=== PATIENT | female | born 1965 | race Caucasian/White ===

== ENCOUNTER 2020-07-09 06:52 | Outpatient (CLI) | payer BC, SELFPAY ==
--- NOTE | ~2020-07-09 | MR_ITS ---
EXAMINATION: MR brain IAC wo con EXAM DATE: 07/09/2020 07:40 INDICATION: Headache YANCEY [id number]. TECHNIQUE: Magnetic resonance imaging (MRI) of the brain/brain stem obtained without contrast. Sagitt al T1, axial diffusion, gradient echo (T2*), T1, T2, FLAIR sequences obtained. There is no prior st udy for comparison. FINDINGS: There are no areas of restricted diffusion to suggest acute infarction. Several punctate wh ite matter T2 hyperintensities, nonspecific but likely minimal age-related microangiopathy. There is no acute hemorrhage seen on the T2*, a hemosiderin sensitive sequence. No intraparenchymal brain mas s. The ventricles are normal in size. There are no extra-axial collections. Flow voids are seen in the cerebral arteries on the T2-weighted sequences consistent with their expected patency. The orbit s are unremarkable. Soft tissue is unremarkable. Posterior fossa is unremarkable. There are 3 smal l left maxillary sinus retention cysts or polyps, and one in the right maxillary sinus. IMPRESSION: 1. Several punctate white matter T2 hyperintensities, nonspecific but likely minimal microangiopathy. 2. Maxillary sinus retention cysts or polyps. Reviewed, dictated and finalized at location B. IDENTIAL SECRETARY IMPRESSION: 1. Several punctate white matter T2 hyperintensities, nonspecific but likely mi nimal microangiopathy. 2. Maxillary sinus retention cysts or polyps.
== END 2020-07-09 06:53 ==
LOC: CHSIMG 06:55
PROVIDERS: PCP Internal Medicine; Visit Provider Internal Medicine
DX: R50.9 Fever, unspecified (principal)
CPT/HCPCS: 70551

== ENCOUNTER → 2020-12-02 10:32 | Outpatient (CLI) | payer BC, SELFPAY ==
--- NOTE | ~2020-12-02 | CT_ITS ---
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 2 weeks of right flank pain. TECHNIQUE: Computed tomography (CT) of the abdomen and pelvis was performed without intravenous contr ast. CT of the abdomen and pelvis was then performed with a total of 130 mL Omnipaque-350 intravenous contrast using a double-bolus technique for simultaneous opacification of the renal parenchyma and r enal collecting system. Automated exposure control and iterative reconstruction technique were employ ed. The dose-length product was 1414.82 mGy-cm. COMPARISON: None FINDINGS: Mild discoid atelectasis at the lingula. Heart size is normal. No pericardial or pleural effusion. He terogeneous pattern of diffuse hepatic steatosis. Gallbladder, spleen, pancreas and bilateral adrenal glands are normal. 3.3 cm right renal cyst with thin indiscernible internal septation. 2-3 mm parenc hymal calcification at the upper pole of the right kidney at the site of focal cortical scarring. No other urolithiasis or hydronephrosis. There are bilateral dedicated renal collecting systems with sep arate ureters extending from the kidneys to the bladder. The proximal to mid aspect of the left-sided ureters and the midportion of both the right ureters remain unopacified. No urothelial irregularitie s identified along the contrast opacified portions of the renal collecting systems and ureters. T-sha ped IUD in expected position within the endometrial canal of the anteverted uterus. 3 cm enhancing fi broid at the anterior uterine fundus. Bilateral adnexa are unremarkable. Bowels including the appendi x are normal. No free intraperitoneal gas or fluid. No pathologically enlarged abdominal or pelvic ly mphadenopathy. Small fat-containing umbilical hernia. Mild lumbar spondylosis. IMPRESSION: 1. No interval change in a 3.3 cm Bosniak 2 right renal cyst. 2. 2-3 mm nonobstructing stone/parenchymal calcification at the upper pole of the right kidney. 3. Complete bilateral duplicated renal collecting systems with pair of left-sided and pair of right-s ided ureters, all extending to the bladder. 4. IUD in expected position within the uterus with 3 cm anterior uterine fibroid. 5. Small fat-containing umbilical hernia. Reviewed, dictated and finalized at location A. IMPRESSION: 1. No interval change in a 3.3 cm Bosniak 2 right renal cyst. 2. 2-3 mm nonobstructing stone/parenchymal calcification at the upper pole of t he right kidney. 3. Complete bilateral duplicated renal collecting systems with pair of left-em ed and pair of right-sided ureters, all extending to the bladder. 4. IUD in expected position within the uterus with 3 cm anterior uterine fibroi d. 5. Small fat-containing umbilical hernia.
[2020-12-02 10:59] LABS: Estimated Glomerular Filt Rate > 60
== END ==
PROVIDERS: PCP Internal Medicine; Visit Provider Urology
DX: D41.01 Neoplasm of uncertain behavior of right kidney (principal); Z97.5 Presence of (intrauterine) contraceptive device; K44.9 Diaphragmatic hernia without obstruction or gangrene; N20.0 Calculus of kidney
CPT/HCPCS: 74178; Q9967

== ENCOUNTER 2021-07-03 01:23 | Day surgery (SDC) | payer BC, SELFPAY ==
[2021-06-30 10:48] VITALS: BMI 30.7
--- NOTE | 2021-07-01 13:15 | PM.HPGS ---
History of Present Illness History of Present Illness Consent: Risks, benefits, and alternatives have been discussed and questions answered. Patient agrees to proceed with procedure. Chief complaint: GERD, epigastric pain Narrative: Madison Mccormick I is a 55 year old female with referred because of persistent epigastric pain. This often occurs after eating something greasy or spicy. the discomfort will last for about an hour Review of Systems Review of Systems: All systems reviewed & are unremarkable except as noted in HPI and below PMFSH Past Medical History Medical History (Updated 07/03/21 @ 08:27 by Delroy Reyes MD) Fibromyalgia GERD (gastroesophageal reflux disease) HTN (hypertension) Obesity Surgical History Surgical History H/O colonoscopy Family History Family History Other Diabetes mellitus Family history of cardiovascular disease Social History Social History Smoking status: Never smoker Alcohol intake: current Drinks per week: 2 Alcohol use details: occasional wine on weekend Substance use: never Substance use type: does not use Living arrangements: with family Spiritual care concerns: No Meds Home Medications and Allergies Home Medications Medication Instructions Recorded Confirmed Type aspirin 81 mg PO DAILY 06/30/21 06/30/21 History estradiol-norethindrone acet 1 tablet PO DAILY 06/30/21 06/30/21 History fluticasone propionate 1 spray INTRANASAL PRN PRN 06/30/21 06/30/21 History magnesium oxide 250 mg PO DAILY 06/30/21 06/30/21 History montelukast 10 mg PO DAILY 06/30/21 06/30/21 History nortriptyline 25 mg PO DAILY 06/30/21 06/30/21 History verapamil 120 mg PO DAILY 06/30/21 06/30/21 History Allergies Allergy/AdvReac Type Severity Reaction Status Date / Time No Known Allergies Allergy Verified 07/03/21 08:18 Exam Const: General: alert Orientation/consciousness: patient oriented x3 Resp: Auscultation: clear to auscultation bilaterally Cardio: Rhythm: regular rhythm GI: GI Palp: Yes Soft to palpation and No Tenderness to palpation present (GI) Neuro: General: patient oriented x3 Assessment and Plan Assessment and plan (1) Epigastric pain: Code(s): R10.13 - Epigastric pain Status: Acute Assessment and Plan: EGD with possible biopsy or dilatation or cautery.
[2021-07-03 08:18] VITALS: BP 134/71; PULSE 81; RESP 14; TEMP 35.6; O2SAT 98; BMI 31.1
--- NOTE | 2021-07-03 08:26 | P.PNAN_ITS ---
Anes - Initial Pre Proc Eval Procedure: Operation Date: 07/03/21 09:00 Proposed Procedures p Esophagogastroduodenoscopy - Wally Sharpe MD Date/Time: 07/03/21 08:26 Surgeon: Wally Sharpe MD Pre Op Diagnosis: GERD, epigastric pain Patient Data Age: 55 Gender: F Height: 1.6 m Weight: 79.8 kg Last Vital Signs Temp 35.6 C L 07/03/21 08:18 Pulse 81 07/03/21 08:18 Resp 14 07/03/21 08:18 BP 134/71 07/03/21 08:18 Pulse Ox 98 07/03/21 08:18 Allergies Allergy/AdvReac Type Severity Reaction Status Date / Time No Known Allergies Allergy Verified 07/03/21 08:18 Home Medications Medication Instructions Recorded Confirmed Type aspirin 81 mg PO DAILY 06/30/21 06/30/21 History estradiol-norethindrone acet 1 tablet PO DAILY 06/30/21 06/30/21 History fluticasone propionate 1 spray INTRANASAL PRN PRN 06/30/21 06/30/21 History magnesium oxide 250 mg PO DAILY 06/30/21 06/30/21 History montelukast 10 mg PO DAILY 06/30/21 06/30/21 History nortriptyline 25 mg PO DAILY 06/30/21 06/30/21 History verapamil 120 mg PO DAILY 06/30/21 06/30/21 History Patient hx anesthesia problems: none Family hx anesthesia problems: none Results Review: All pre-operative results and documents have been reviewed as part of the pre-operative evaluation. [facility] Past Medical History Medical History (Updated 07/03/21 @ 08:27 by Delroy Reyes MD) Fibromyalgia GERD (gastroesophageal reflux disease) HTN (hypertension) Obesity Surgical History Surgical History (Updated 07/03/21 @ 08:26 by Delroy Reyes MD) H/O colonoscopy Family History Family History (Updated 04/24/19 @ 09:06 by DOCTOR UNKNOWN) Other Diabetes mellitus Family history of cardiovascular disease Social History Social History Smoking status: Never smoker Alcohol intake: current Drinks per week: 2 Alcohol use details: occasional wine on weekend Substance use: never Substance use type: does not use Living arrangements: with family Spiritual care concerns: No Anes - Eval Final PreProcedure Day of Procedure 10/29/21 08:26 Patient weight: obese Heart: regular rate and rhythm Lungs: clear to auscultation Airway: Mallampati scale class II Neurological: alert and oriented Last oral intake: >/= 8 hours ASA classification: III Emergent: no Anesthetic plan: proceed Anesthesia type and monitoring: general GIVS and standard monitoring Results Review: All pre-operative results and documents have been reviewed as part of the pre-operative evaluation. Informed Consent: The patient's anesthetic plan and its attendant risks and benefits were discussed with the patient/family/POA. Questions were solicited and answers provided to the satisfaction of the patient/family/POA.
[2021-07-03] MEDS: LACTATED RINGERS 1,000 ML 150 ML IV CONT (08:37)
[2021-07-03 09:08] VITALS: BP 101/59; PULSE 70; RESP 23; O2SAT 97
[2021-07-03 09:18] VITALS: BP 105/67; PULSE 60; RESP 22; O2SAT 97
[2021-07-03 09:28] VITALS: BP 111/65; PULSE 57; RESP 22; O2SAT 100
== END 2021-07-03 09:36 | disposition home or self-care (01) ==
PROVIDERS: PCP Internal Medicine; Visit Provider Internal Medicine Gastroenterology
PROC: 0DJ08ZZ Inspection of Upper Intestinal Tract, Via Natural or Artificial Opening Endoscopic (ICD-10-PCS; CPT 43235; principal; 2021-07-03 09:00)
DX: K21.00 Gastro-esophageal reflux disease with esophagitis, without bleeding (principal); M79.7 Fibromyalgia; I10 Essential (primary) hypertension
CPT/HCPCS: 43239; 87081; 88305; J2704; J7120

== ENCOUNTER 2021-08-06 09:53 | Outpatient (CLI) | payer BC, SELFPAY ==
--- NOTE | ~2021-08-06 | US_ITS ---
EXAMINATION: US abdomen complete EXAM DATE: 08/06/2021 14:59 INDICATION: R10.13 - Epigastric pain. TECHNIQUE: Multiple grayscale and Doppler images of the complete abdomen were obtained (by a technolo gist who performed the scan) and subsequently reviewed. Comparison is made to prior examination from 10/15/2016. FINDINGS: The abdominal aorta is normal in caliber. Visualized portion IVC is patent. The pancreatic head a nd body are normal in appearance. The pancreatic tail is not visualized. There is echogenic liver parenchyma, hepatic steatosis. There are no focal liver lesions identified. There is no evidence of intrahepatic biliary duct dilation. Portal venous flow was seen in the he patopedal, normal direction and has normal Doppler waveform. Common bile duct measures 5 mm, which is normal. The gallbladder wall is normal in thickness, with ex pected amount of distention. No sonographic evidence of pericholecystic fluid. There is no cholelit hiases. Technologist performing exam reports patient did not demonstrate sonographic Gr's sign. Please note that this sign is less reliable in patients who have received pain medication. Right kidney: There is normal contour and echogenicity. It measures 11.0 x 5.2 x 5.3 centimeters. T here is a cystic lesion measuring up to 2.8 cm with one or 2 septations inside, size unchanged compar ed to 2017 consistent with benign histology. There is no hydronephrosis. Left kidney: There is normal contour and echogenicity. It measures 12.4 x 4.6 x 5.7 centimeters. T here are no focal renal lesions identified. There is no hydronephrosis. The spleen measures 10 centimeters and is morphologically normal. IMPRESSION: 1. Hepatic steatosis. 2. Right renal Bosniak 2 category cyst. Reviewed, dictated and finalized at location A. ICAL RESEARCH MONITOR
== END 2021-08-06 09:54 | disposition home or self-care (01) ==
LOC: ANHIMG 09:57
PROVIDERS: PCP Internal Medicine; Visit Provider Internal Medicine Gastroenterology
DX: R10.13 Epigastric pain (principal); K76.0 Fatty (change of) liver, not elsewhere classified; N28.1 Cyst of kidney, acquired
CPT/HCPCS: 76700

== ENCOUNTER 2021-11-03 17:05 | Emergency (ER) | payer BC, SELFPAY ==
--- NOTE | ~2021-11-03 | XR_ITS ---
XR chest 2V DATE: 11/03/2021 17:34 INDICATION: Sternal chest pain since. History of hypertension. TECHNIQUE: PA and lateral views COMPARISON: 07/15/2017 2 view chest FINDINGS: Normal heart size. No hilar or mediastinal enlargement. No pulmonary infiltrate or consol idation, pulmonary vascular congestion or pleural effusion or pneumothorax. IMPRESSION: No active cardiopulmonary disease Reviewed, dictated and finalized at location A. WORKER OR ESCORT
--- NOTE | 2021-11-03 17:06 | ECG_ITS ---
Measurements Intervals [place] Rate: 70 P: 37 CA: 147 QRS: 54 QRSD: 85 T: 53 QT: 426 QTc: 463 Interpretive Statements SINUS RHYTHM NORMAL EKG NO PREVIOUS ECG AVAILABLE FOR COMPARISON Electronically Signed On 11-04-2021 9:00:10 CLINICAL PATHOLOGIST by Gregory Marinelli M.D.
[2021-11-03 17:13] VITALS: BP 138/78; PULSE 70; RESP 12; TEMP 36.9; O2SAT 100
[2021-11-03 17:40] LABS: Basophils Percent Auto 0.2 % (0.2-1.2); Eosinophils Absolute Auto 0.1 K/mm3 (0-0.3); Eosinophils Percent Auto 0.9 % (0-4.4); Hematocrit 46.5 % (37.0-47.0); Hemoglobin 15.3 g/dL (12.0-15.0); Immature Granulocyte Absolute 0.01 K/mm3 (0.00-0.031); Immature Granulocyte Percent A 0.2 % (0-0.5); Lymphocytes Absolute Auto 1.64 K/mm3 (0.9-3.2); Lymphocytes Percent Auto 30.1 % (18.3-44.2); Mean Corpuscular HGB Conc 32.9 g/dl (32-36); Mean Corpuscular Hemoglobin 31.4 pg (26-34); Mean Corpuscular Volume 95.5 fl (80-100); Mean Platelet Volume 10.8 fl (7.4-10.4); Monocytes Absolute Auto 0.3 K/mm3 (0.1-0.6); Monocytes Percent Auto 5.7 % (2.6-8.5); Neutrophils Absolute Auto 3.4 K/mm3 (1.3-6.7); Neutrophils Percent Auto 62.9 % (45.5-73.1); Platelet Count Result 202 k/mm3 (150-375); Red Blood Count 4.87 M/mm3 (4.2-5.4); Red Cell Distribution Width 11.7 % (11.5-14.5); White Blood Count 5.5 K/mm3 (4.5-10.0)
[2021-11-03 17:52] LABS: Alanine Aminotransferase 29 U/L (4-35); Albumin Level 4.8 g/dL (3.5-5.1); Alkaline Phosphatase 79 U/L (38-126); Anion Gap 9 mmol/L (8-16); Aspartate Amino Transferase 37 U/L (14-36); Bilirubin,Total 0.6 mg/dL (0.2-1.3); Blood Urea Nitrogen 23 mg/dL (7-17); Calcium 9.1 mg/dL (8.4-10.2); Carbon Dioxide 26 mmol/L (22-30); Chloride 102 mmol/L (98-107); Estimated CRCL calculation 69 ml/min; Estimated Glomerular Filt Rate > 60; Glucose 92 mg/dL (65-110); Lipase 151 U/L (23-300); Potassium 3.8 mmol/L (3.4-5.0); Sodium 137 mmol/L (137-145)
[2021-11-03 17:54] LABS: Prothrombin Time 12.8 Seconds (11.1-14.7)
[2021-11-03 18:02] VITALS: BP 132/82; PULSE 67; RESP 18; O2SAT 100
[2021-11-03] MEDS: ASPIRIN 81 MG CHEWABLE TABLET 324 MG PO (18:03)
[2021-11-03 18:04] LABS: Troponin I < 0.012 ng/mL (0.000-0.034)
[2021-11-03 19:00] VITALS: BP 118/68; PULSE 62; RESP 16; O2SAT 99
--- NOTE | 2021-11-03 19:30 | ED.CHESTPAIN ---
HPI - Chest Pain General Chief Complaint: Chest Pain Stated Complaint: chest pain Time Seen by Provider: 11/03/21 18:58 Source: patient History of Present Illness HPI narrative: Patient presents with intermittent chest pain. Describes pain is sharp with a light pressure. Her pain has been present since 11:00 she reports deep breaths improves her pain was unable to identify any aggravating factors such as position or physical activity. Denies any recent hospitalizations prior history of blood clots significant family history of cardiac disease. Denies any recent fevers, cough, congestion. She denies any nausea vomiting or diaphoresis. Related Data Home Medications Medication Instructions Recorded Confirmed aspirin 81 mg PO DAILY 06/30/21 09/15/21 estradiol-norethindrone acet 1 tablet PO DAILY 06/30/21 09/15/21 fluticasone propionate 1 spray INTRANASAL PRN PRN 06/30/21 09/15/21 magnesium oxide 250 mg PO DAILY 06/30/21 09/15/21 montelukast 10 mg PO DAILY 06/30/21 09/15/21 nortriptyline 25 mg PO DAILY 06/30/21 09/15/21 verapamil 120 mg PO DAILY 06/30/21 09/15/21 Allergies Allergy/AdvReac Type Severity Reaction Status Date / Time No Known Allergies Allergy Verified 09/15/21 15:10 Review of Systems Review of Systems: CONSTITUTIONAL: Denies fever, chills, or sweats. EYES: Denies visual changes, redness, or discharge. ENT: Denies rhinorrhea, congestion, sore throat, or otalgia. CARDIOVASCULAR: Denies palpitations, or edema. RESPIRATORY: Denies cough or dyspnea. GASTROINTESTINAL: Denies abdominal pain, nausea, vomiting, or diarrhea. GENITOURINARY: Denies dysuria or hematuria. SKIN: Denies rash or itching. MUSCULOSKELETAL: Denies back pain, joint pain, or myalgia. NEUROLOGIC: Denies headache, numbness, dizziness, or weakness. PSYCHIATRIC: Denies anxiety or depression. [facility] Past Medical History Medical History Fibromyalgia GERD (gastroesophageal reflux disease) HTN (hypertension) Obesity Surgical History Surgical History H/O colonoscopy Family History Family History Other Diabetes mellitus Family history of cardiovascular disease Social History Social History Smoking status: Never smoker Alcohol intake: current Drinks per week: 2 Alcohol use details: occasional wine on weekend Substance use: never Substance use type: does not use Spiritual care concerns: No Exam Narrative: GENERAL: Well-appearing, well-nourished, and in no acute distress. HEAD: Normocephalic, atraumatic. EYES: PERRLA and EOMI. ENT: Nares clear, no rhinorrhea or epistaxis. Mucous membranes moist. NECK: Supple. No masses. No JVD CHEST: Clear to auscultation. No respiratory distress. No wheezes rales or rhonchi HEART: Regular rate and rhythm. No murmur heard. Normal peripheral pulses. ABDOMEN: Soft, nontender, nondistended, normal active bowel sounds. EXTREMITIES: Normal range of motion. No edema. SKIN: Warm, dry, no rash. NEURO: No focal deficits. Alert and oriented x3. PSYCH: Normal mood and affect. Course Reevaluation(s) Reevaluation #1: Patient resting comfortably results and plan reviewed with patient. Patient comfortable outpatient plan. Date: 11/03/21 Time: 20:54 Vital Signs Vital signs: Vital Signs Temperature 36.9 C 11/03/21 17:13 Pulse Rate 70 11/03/21 17:13 Respiratory Rate 12 11/03/21 17:13 Blood Pressure 138/78 11/03/21 17:13 Pulse Oximetry 100 11/03/21 17:13 Temperature 36.1 C L 11/03/21 21:25 Pulse Rate 60 11/03/21 21:25 Respiratory Rate 14 11/03/21 21:25 Blood Pressure 111/57 L 11/03/21 21:25 Pulse Oximetry 99 11/03/21 21:25 MDM - Chest Pain MDM Narrative Medical decision making narrative: H&P as above, vss, pt looks clinically well,
[2021-11-03 20:33] LABS: Troponin I < 0.012 ng/mL (0.000-0.034)
[2021-11-03 21:25] VITALS: BP 111/57; PULSE 60; RESP 14; TEMP 36.1; O2SAT 99
== END 2021-11-03 21:29 | disposition home or self-care (01) ==
PROVIDERS: Emergency Medicine; Emergency Provider Emergency Medicine; PCP Internal Medicine
DX: R07.89 Other chest pain (principal); M79.7 Fibromyalgia; K21.9 Gastro-esophageal reflux disease without esophagitis; I10 Essential (primary) hypertension; E66.9 Obesity, unspecified; Z68.31 Body mass index [BMI] 31.0-31.9, adult; Z79.82 Long term (current) use of aspirin
CPT/HCPCS: 36415; 71046; 80053; 83690; 84484; 85025; 85610; 85730; 93005; 99284; A9270

== ENCOUNTER 2021-11-10 07:40 | Outpatient (CLI) | payer BC, SELFPAY ==
--- NOTE | ~2021-11-10 | NM_ITS ---
EXAMINATION: NM hepatobiliary wo pharm DATE: 11/10/2021 12:38 INDICATION: Epigastric abdominal pain. COMPARISON: Ultrasound 08/06/2021 TECHNIQUE: 5.1 mCi Tc-99m mebrofenin (Choletec) was administered intravenously. Scintigraphic images of the abdomen were obtained for one hour. Then, the patient drank 8 oz Ensure, and imaging was cont inued for 60 minutes. FINDINGS: There is normal clearance of radiotracer from the blood pool. There is homogeneous tracer u ptake by the liver. Activity progresses to the bowel and gallbladder. Gallbladder ejection fraction (GBEF) was 7%. Note that with this technique, normal GBEF >= 33%. IMPRESSION: 1. Low gallbladder ejection fraction, consistent with gallbladder dysfunction and/or chronic cholecy stitis. Reviewed, dictated and finalized at location A. RIOR DESIGNER IMPRESSION: 1. Low gallbladder ejection fraction, consistent with gallbladder dysfunction and/or chronic cholecystitis.
== END 2021-11-10 07:41 | disposition home or self-care (01) ==
PROVIDERS: PCP Internal Medicine; Visit Provider Internal Medicine Gastroenterology
DX: R10.13 Epigastric pain (principal); K82.8 Other specified diseases of gallbladder
CPT/HCPCS: 78226; A9537

== ENCOUNTER 2021-12-24 08:01 | Outpatient (CLI) | payer BC, SELFPAY ==
[2021-12-24 08:33] LABS: Alanine Aminotransferase 25 U/L (4-35); Albumin Level 4.3 g/dL (3.5-5.1); Alkaline Phosphatase 56 U/L (38-126); Amylase 97 U/L (30-110); Aspartate Amino Transferase 31 U/L (14-36); Bilirubin,Total 0.5 mg/dL (0.2-1.3); Lipase 106 U/L (23-300)
== END 2021-12-24 08:02 | disposition home or self-care (01) ==
LOC: ANHSURGERY 08:05
PROVIDERS: PCP Internal Medicine; Visit Provider Surgery
DX: Z01.818 Encounter for other preprocedural examination (principal); K81.1 Chronic cholecystitis
CPT/HCPCS: 36415; 80076; 82150; 83690; 86850; 86900; 86901

== ENCOUNTER 2021-12-31 01:32 | Day surgery (SDC) | payer BC, SELFPAY ==
[2021-12-22 14:37] VITALS: BMI 31.6
--- NOTE | 2021-12-22 14:42 | PC.NURSE ---
Report to the Outpatient Waiting Room, entrance under the green pavilion located off [facility], at time _1000_ on date _12-31-21_. OR Time: __1200. - You and your visitor will be asked a series of questions to screen for COVID 19 for your protection. - A mask is required within the hospital. Preoperative COVID Testing Requirements: No COVID Test needed if: (proof is required; if not received patient will have Rapid Test prior to entry) - Patient has received COVID Vaccine at least 14 days prior to procedure date or - Patient has positive COVID test result within last 90 days of surgery date. COVID Test needed if above criteria is not met If not COVID vaccinated a COVID test must be conducted within 72 hours of surgery and patient is asked to isolate self from time of testing until procedure. You will go to the [facility] for your COVID testing. The [facility] Testing site is located at the corner of [address] [facility]. You will only be called if COVID results are positive and your surgeon may reschedule your elective surgery date. Patients may have clear liquids (water, carbonated beverages, clear teas, apple juice) until 3 hours prior to surgery with a maximum of 20 ounces. - No food from midnight until time of surgery - Infants may have breast milk until 4 hours before surgery, formula 6 hours prior to surgery. - Children will be allowed to drink immediately following surgery. If applicable, please bring a bottle or sippy cup to assist with drinking. Juice, water, soda, and popsicles are readily available. For infants on formula, please bring formula the day of surgery. Pacifiers are allowed. Take the following medications with a SIP of water the morning of surgery: ____None Medications to discontinue per physician Date to take last dose Please no make-up, nail syriac, hairspray, perfume, deodorant, or body powder the day of surgery. No jewelry (including any body piercings) or valuables the day of surgery, leave them at home. Please take a shower or bath the the morning of, surgery with Hebiclense an antibacterial soap. Wear comfortable, loose fitting clothing. Children are encouraged to wear pajamas. - Jewelry must be removed prior to entering the operating room. Rings and piercings that are not removed may be cut off. - The hospital will not accept responsibility for valuables. - Please leave all valuables, including medications, at home the day of surgery. If you are going home after surgery, a licensed commercial driver's license driver must drive you home. - NO public transportation without another adult. - We recommend that an adult stay with you for 24 hours following discharge. - We also recommend that you do not drive, make important decision, drink alcoholic beverages, or take any drugs that were not prescribed by your health care provider for at least 24 hours after your discharge time. For Pediatric surgeries, we recommend two adults accompany the child home (only one inside the building at this time). One visitor will be allowed to accompany the patient into the hospital. Patients visitor will be instructed to remain with patient at all times or leave the building. We will allow the visitor to come back to the postoperative area when patient is ready. Follow any additional instructions given to you from your surgeon. Telephone instructions given to Patient____and asked if any additional questions and then verbalized understanding. Patient advised to call surgeon office or pre surgery nurse liaison [phone] if any additional questions.
--- NOTE | 2021-12-30 14:34 | WPDANESEPPF ---
Anes - Initial Pre Proc Eval Procedure: Operation Date: 12/31/21 12:00 Proposed Procedures p Laparoscopic Cholecystectomy with Possible Open Cholecystectomy, Possible Intraoperative Cholangiogram - Shantanu Shin MD <Kye Boggs MD - Last Filed: 01/07/22 08:52> Date/Time: 12/30/21 14:34 <Kye Boggs MD - Last Filed: 01/07/22 08:52> Surgeon: Shantanu Shin MD <Kye Boggs MD - Last Filed: 01/07/22 08:52> Pre Op Diagnosis: chronic cholecystitis <Kye Boggs MD - Last Filed: 01/07/22 08:52> Patient Data Age: 56 Gender: F Height: 1.6 m Weight: 80.9 kg <Kye Boggs MD - Last Filed: 01/07/22 08:52> Allergies Allergy/AdvReac Type Severity Reaction Status Date / Time No Known Allergies Allergy Verified 12/22/21 14:35 <Kye Boggs MD - Last Filed: 01/07/22 08:52> Home Medications Medication Instructions Recorded Confirmed Type aspirin 81 mg PO DAILY 06/30/21 12/31/21 History estradiol-norethindrone acet 1 tablet PO DAILY 06/30/21 12/31/21 History fluticasone propionate 1 spray INTRANASAL PRN PRN 06/30/21 12/31/21 History magnesium oxide 250 mg PO DAILY 06/30/21 12/31/21 History nortriptyline 25 mg PO HS 06/30/21 12/31/21 History verapamil 120 mg PO HS 06/30/21 12/31/21 History hydrocodone-acetaminophen 1 tablet PO Q6H PRN #14 tablet 12/31/21 Rx pantoprazole 40 mg PO HS 28 Days #28 tablet 12/31/21 Rx <Kye Boggs MD - Last Filed: 01/07/22 08:52> Patient hx anesthesia problems: none <Jaquan Conklin DO - Last Filed: 12/31/21 11:40> Family hx anesthesia problems: none <Jaquan Conklin DO - Last Filed: 12/31/21 11:40> Results Review: All pre-operative results and documents have been reviewed as part of the pre-operative evaluation. <Kye Boggs MD - Last Filed: 01/07/22 08:52> [facility] Past Medical History Medical History: Medical History (Updated 12/31/21 @ 09:27 by Shantanu Shin MD) Fibromyalgia GERD (gastroesophageal reflux disease) HTN (hypertension) (Unknown) Obesity <Kye Boggs MD - Last Filed: 01/07/22 08:52> Surgical History Surgical History: Surgical History H/O colonoscopy History of section <Kye Boggs MD - Last Filed: 01/07/22 08:52> Family History Family History: Family History Father Stomach cancer Mother Diabetes mellitus COPD (chronic obstructive pulmonary disease) Other Breast cancer Family history of cardiovascular disease <Kye Boggs MD - Last Filed: 01/07/22 08:52> Social History Social History: Social History Smoking status: Never smoker Alcohol intake: current Drinks per week: 3 Alcohol use details: occasional wine on weekend Substance use: never Substance use type: does not use Living arrangements: with family 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 Spiritual care concerns: No <Kye Boggs MD - Last Filed: 01/07/22 08:52> Anes - Eval Final PreProcedure Day of Procedure 12/30/21 14:34 <Kye Boggs MD - Last Filed: 01/07/22 08:52> Patient weight: obese <Jaquan Conklin DO - Last Filed: 12/31/21 11:40> Heart: regular rate and rhythm <Jaquan Cnoklin DO - Last Filed: 12/31/21 11:40> Lungs: clear to auscultation and normal air movement <Jaquan Conklin DO - Last Filed: 12/31/21 11:40> Airway: Mallampati scale class II <Jaquan Conklin DO - Last Filed: 12/31/21 11:40> Neurological: alert and oriented <Jaquan Conklin DO - Last Filed: 12/31/21 11:40> Last oral intake: >/= 8 hours <Jaquan Conklin, DO - Last Filed: 12/31/21 11:40> ASA classification: III <Jaquan Reyes
[2021-12-31] VITALS (9 sets, daily range): BP systolic 93–130; BP diastolic 59–77; PULSE 60–78; RESP 11–20; TEMP 36.2–36.3; O2SAT 95–100
--- NOTE | 2021-12-31 09:24 | PM.HPGS ---
History of Present Illness History of Present Illness Consent: Risks, benefits, and alternatives of a laparoscopic cholecystectomy, possible open cholecystectomy, possible intraoperative cholangiogram have been discussed and questions answered. Patient agrees to proceed with procedure. Chief complaint: chronic cholecystitis Narrative: Madison Mccormick is a 56 year old female who presents at this time after an office visit at which time thorough discussion was undertaken regarding her current GI symptoms. She understands that some of her symptoms may be related to GERD but others seem to be related to biliary dyskinesia (see HIDA scan report). She reports a 6-month history of epigastric abdominal pain and sxs of GERD associated with eating fried, spicy, and tomato based foods, with symptoms occasionally waking her in the night. Thinking symptoms were from GERD, she often would take TUMS with some relief of her symptoms of GERD. She was sent by her PCP to Dr. Sharpe and underwent an EGD in 06/2021 which he notes some non-erosive reflux disease, but which otherwise was unremarkable. Dr. Sharpe ordered an abdominal ultrasound which was negative for gallstones. She was then sent for a HIDA scan which showed an EF of 7% with recreation of sxs of epigastric abdominal pain with drinking Ensure. After her EGD, Dr. Nielsen started her on a 30-day prescription of a PPI which helped with her sxs of GERD, but once she stopped the medication, her symptoms recurred. She has a twin sister who has undergone cholecystectomy for gallbladder disease. Review of Systems Constitutional: Constitutional: Reports no additional constitutional complaints, Reports fatigue and Denies malaise Eyes: Eyes: Denies change in vision and Denies loss of vision ENT: Reports Normal hearing present, Denies change in voice, Denies dizziness, Denies hoarseness and Denies sore throat Cardiovascular: Cardiovascular: Denies chest pain, Denies leg edema and Denies dyspnea Respiratory: Respiratory: Denies cough, Denies dyspnea and Denies wheezing Gastrointestinal: Gastrointestinal: Reports bloating ( Periodically after spicy foods), Denies hematochezia, Denies change in bowel habits, Reports dyspepsia and Reports heartburn ( usually controlled with liquid antacids) Comments: history of EGD by Dr. Sharpe in the past showing only mild reflux related mucosal changes. Genitourinary: Genitourinary: Denies urinary frequency and Denies urinary incontinence Comments: No previous abdominal surgeries except for c-sections. Neurologic: Reports Normal hearing present, Denies confusion, Denies dizziness, Denies loss of vision, Denies memory loss and Denies seizure-like activity Psychiatric: Psychiatric: Denies confusion, Denies depression and Denies memory loss Endocrine: Endocrine: Denies cold intolerance and Reports fatigue Hematologic/Lymphatic: Hematologic/Lymphatic: Denies easy bleeding and Denies easy bruising Allergic/Immunologic: Allergic/Immunologic: Denies wheezing PMFSH Past Medical History Medical History (Updated 12/31/21 @ 09:27 by Shantanu Shin MD) Fibromyalgia GERD (gastroesophageal reflux disease) HTN (hypertension) (Unknown) Obesity Surgical History Surgical History H/O colonoscopy History of section Family History Family History Father Stomach cancer Mother Diabetes mellitus COPD (chronic obstructive pulmonary disease) Other Breast cancer Family history of cardiovascular disease Social History Social History Smoking status: Never smoker Alcohol intake: current Drinks per week: 3 Alcohol use details: occasional wine on weekend Substance use: never Substance use type: does not use Living arrangements: with family Additional occupation/education comments
[2021-12-31] MEDS: ACETAMINOPHEN 500 MG TABLET 1000 MG PO (11:05)
[2021-12-31] MEDS: LACTATED RINGERS 1,000 ML 30 ML IV CONT ×2 (11:20→14:14)
[2021-12-31] MEDS: KETOROLAC 15 MG/ML VIAL (*BKC) IV PUSH (11:22)
--- NOTE | 2021-12-31 12:12 | WPDHPUPDATE1 ---
History and Physical Update Update Date/Time: 12/31/21 12:12 History and Physical has been reviewed, including an updated exam of the patient. There are NO changes in the patient's condition. Risks, benefits, and alternatives have been discussed and questions answered. Patient agrees to proceed with procedure.
[2021-12-31] MEDS: ceFAZolin 2 GM/D5W 50 ML 2 GM/50 ML BAG IVPB (12:37)
--- NOTE | 2021-12-31 14:13 | W.PM.PROC2 ---
Procedure Note - Detailed Date of Procedure 12/31/21 Pre-op Diagnosis 1. chronic cholecystitis 2. Biliary dyskinesia Post-op Diagnosis Same Procedure Performed Laproscopic Cholecystectomy Surgeon Shantanu Shin MD Casino Slot Supervisor Donnell MARCIAL.OR first front ventilator Anesthesia General Indications Patient had an abnormal hepatobiliary scan. Patient has been having postprandial pain and problems. Description of Procedure Patient was seen preoperatively in the holding area and risks, benefits and alternatives confirmed. Patient was taken to the operating room and general anesthesia was induced. A time out was then preformed with the surgery team confirming patient and site of surgery. The abdomen was prepped and draped in the usual sterile fashion. Incision was made just below the umbilicus with an 11 blade knife. I placed 2 stay sutures of O- Vicryl on either side of the mid-line fascia beneath the umbilicus and was then able to slide in the Siddiqui cannula through the fascial defect into the peritoneum. First under low flow and then under high flow the abdomen was insufflated with carbon dioxide never exceeding a pressure of 14. Three 5 mm trocars were then introduced under direct vision. The following trocars were introduced under direct vision: a 5 mm in the epigastrium and two 5 mm trocars along the right costal margin laterally in the subcostal area. There were not any adhesions to the underside of the gallbladder. I then carefully used the L-shaped cautery and the [place] dissector to dissect out the triangle of Calot. I then was able to dissect out both the cystic duct and cystic artery and identify a window of safety. The gall bladder was grasped and the cystic duct and artery were dissected free and clipped with an 5 mm endo-clip offset press operator helper. The cystic duct and artery were clipped with use of 2 clips on the patient's side 1 on the gallbladder side utilizing a 5 mm endoclip-offset press operator helper. The cystic duct was then transected. The cystic artery was also transected at this point. The gall bladder was removed using electrocautery and then removed from the abdomen using a large 10 mm grasper via the umbilical incision. The trocars were removed visualizing hemostasis and the remaining gas evacuated. The large trocar site at the umbilicus was closed with use of the 2 stay sutures of 0 Vicryl mentioned above and also a figure of 8 O-Vicryl suture. The 2 stay sutures mentioned above on either side of the fascia were also tied together to help approximate this midline fascia. Further local anesthetic was placed into each incision for postop pain control. The skin incisions were closed with subcuticular suture of 4-0 Monocryl. Surgical glue then was applied to all the incisions. Patient tolerated the procedure well was taken to the recovery room in good condition. Implants none Estimated Blood Loss 20 IV Fluids 1,700 Drains No Packing No Pathology Yes (Gallbladder) Complications No immediate complications Condition Stable Disposition PACU
== END 2021-12-31 15:48 | disposition home or self-care (01) ==
PROVIDERS: PCP Internal Medicine; Visit Provider Surgery
PROC: 0FT44ZZ Resection of Gallbladder, Percutaneous Endoscopic Approach (ICD-10-PCS; CPT 47562; principal; 2021-12-31 12:00)
DX: K82.8 Other specified diseases of gallbladder (principal); K76.0 Fatty (change of) liver, not elsewhere classified; K21.9 Gastro-esophageal reflux disease without esophagitis; I10 Essential (primary) hypertension; M79.7 Fibromyalgia; E66.9 Obesity, unspecified; Z68.31 Body mass index [BMI] 31.0-31.9, adult; Z79.82 Long term (current) use of aspirin
CPT/HCPCS: 47562; 88304; A9270; J0690; J1100; J1170; J1885; J2250; J2405; J2704; J2710; J3010; J7030; J7120; Q9966

== ENCOUNTER 2022-08-04 12:10 | Outpatient (CLI) | payer BC, SELFPAY ==
--- NOTE | ~2022-08-04 | CT_ITS ---
EXAMINATION: CT abdomen pelvis wo/w con DATE: 08/04/2022 12:50 INDICATION: Neoplasm of uncertain behavior of right kidney. TECHNIQUE: Computed tomography (CT) of the abdomen and pelvis was performed without and with 100 mL O mnipaque 350 intravenous contrast. Automated exposure control and iterative reconstruction technique were employed. The dose-length product was 989.07 mGy-cm. COMPARISON: CT abdomen and pelvis 12/02/2020, 10/21/16 FINDINGS: The visualized portions of the lung bases demonstrate mild atelectasis. The heart size is n ormal. No pericardial effusion. There is diffuse hepatic steatosis. There are changes of cholecystect ammon. The spleen, pancreas, adrenal glands, and left kidney are normal. There is a 4 mm stone versus p arenchymal calcification in right kidney upper pole with focal cortical thinning. There is a 3.2 cm c yst in right kidney with thin wall calcifications. There is an umbilical hernia containing fat. There is a 2.7 cm uterine fibroid. There are no dilated loops of bowel. The appendix is normal. There are no pathologically enlarged lymph nodes. There is no free intraperitoneal fluid. There is severe lower lumbar spondylosis. IMPRESSION: 1. 3.2 cm Bosniak type 2 cystic lesion in right kidney, stable from 10/21/16, likely benign. Reviewed, dictated and finalized at location A. ORK ARCHITECT IMPRESSION: 1. 3.2 cm Bosniak type 2 cystic lesion in right kidney, stable from 10/21/16, maria del carmen stringer benign.
--- NOTE | ~2022-08-04 | XR_ITS ---
EXAM: XR abdomen/kub 1V DATE: 08/04/2022 12:32 HISTORY: ONEIL OF UNCERTAIN BEHAVIOR OF R KIDNEY . COMPARISON: Ultrasound abdomen 08/06/2021, CT abdomen and pelvis 12/02/2020. FINDINGS: Cholecystectomy clips. Normal bowel gas pattern. No organomegaly. Pelvic phleboliths. Mild degenerative change in the lumbar spine and bilateral hips. IMPRESSION: No radiographic evidence of ileus or obstruction. Examination is poorly suited for renal mass evaluation, consider renal ultrasound, CT, or MRI. Reviewed, dictated and finalized at location K. RPILLAR DRIVER IMPRESSION: No radiographic evidence of ileus or obstruction. Examination is po brina suited for renal mass evaluation, consider renal ultrasound, CT, or MRI.
[2022-08-04 12:43] LABS: Estimated Glomerular Filt Rate 58
== END 2022-08-04 12:11 | disposition home or self-care (01) ==
PROVIDERS: PCP Internal Medicine; Visit Provider Nurse Practitioner Adult Health
DX: D41.01 Neoplasm of uncertain behavior of right kidney (principal)
CPT/HCPCS: 74018; 74178; Q9967

== ENCOUNTER 2022-08-18 07:53 | Outpatient (CLI) | payer BC, SELFPAY ==
[2022-08-18 08:22] LABS: Basophils Percent Auto 0.4 % (0.2-1.2); Eosinophils Percent Auto 0.6 % (0-4.4); Hematocrit 43.9 % (37.0-47.0); Hemoglobin 14.8 g/dL (12.0-15.0); Immature Granulocyte Absolute 0.03 K/mm3 (0.00-0.031); Immature Granulocyte Percent A 0.6 % (0-0.5); Lymphocytes Absolute Auto 1.29 K/mm3 (0.9-3.2); Lymphocytes Percent Auto 24.7 % (18.3-44.2); Mean Corpuscular HGB Conc 33.7 g/dl (32-36); Mean Corpuscular Hemoglobin 31.8 pg (26-34); Mean Corpuscular Volume 94.4 fl (80-100); Mean Platelet Volume 11.2 fl (7.4-10.4); Monocytes Absolute Auto 0.4 K/mm3 (0.1-0.6); Monocytes Percent Auto 6.7 % (2.6-8.5); Neutrophils Absolute Auto 3.5 K/mm3 (1.3-6.7); Platelet Count Result 190 k/mm3 (150-375); Red Blood Count 4.65 M/mm3 (4.2-5.4); Red Cell Distribution Width 11.9 % (11.5-14.5); White Blood Count 5.2 K/mm3 (4.5-10.0)
== END 2022-08-18 07:54 | disposition home or self-care (01) ==
PROVIDERS: PCP Internal Medicine; Visit Provider Obstetrics & Gynecology
DX: D21.9 Benign neoplasm of connective and other soft tissue, unspecified (principal); Z01.818 Encounter for other preprocedural examination
CPT/HCPCS: 36415; 85025; 86850; 86900; 86901

== ENCOUNTER 2022-08-20 02:18 | Day surgery (SDC) | payer BC, SELFPAY ==
[2022-08-09 12:40] VITALS: BMI 32.8
--- NOTE | 2022-08-09 12:45 | PC.NURSE ---
Report to the Outpatient Waiting Room, entrance under the green pavilion located off [facility], at time 6:00 on date 08/20/22. Planned Procedure Time: 7:30. Time changes happen often and if your time is changed the preop area will call you the afternoon before. - You and your visitor will be asked to self-screen and do not enter if you have any COVID symptoms. - Only one visitor is requested with a max of two and NO children visitors are allowed at this time. - The patient visitor may be requested to leave or wait in car when not with patient due to distancing restrictions. - A mask is optional within the hospital. Patients may have clear liquids (water, carbonated beverages, clear teas, apple juice) until 3 hours prior to surgery (4;30) with a maximum of 20 ounces. - No food from midnight until time of surgery Take the following medications with a SIP of water the morning of surgery: NONE Medications to discontinue per physician: ASPIRIN Date to take last dose: CHECK WITH DR. MARLENE DRAKE Please no make-up, nail turkish, hairspray, perfume, deodorant, or body powder the day of surgery. No jewelry (including any body piercings) or valuables the day of surgery, leave them at home. Please take a shower or bath the night before, or the morning of, surgery with an antibacterial soap. Wear comfortable, loose fitting clothing. - Jewelry must be removed prior to entering the operating room. Rings and piercings that are not removed may be cut off. - The hospital will not accept responsibility for valuables. - Please leave all valuables, including medications, at home the day of surgery. If you are going home after surgery, a licensed logging truck driver must drive you home. - NO public transportation without another adult if you receive anesthesia. - We recommend that an adult stay with you for 24 hours following discharge. - We also recommend that you do not drive, make important decision, drink alcoholic beverages, or take any drugs that were not prescribed by your health care provider for at least 24 hours after your discharge time. Follow any additional instructions given to you from your surgeon. If you or anyone in your household have experienced Covid symptoms in the past week, please notify your surgeon or the nurse liaison at the phone number below for possible testing. Telephone instructions given to PT - FADI PALMER and asked if any additional questions and then verbalized understanding. Patient advised to call surgeon office or pre surgery nurse liaison [phone] if any additional questions.
--- NOTE | 2022-08-17 07:48 | PM.IMHP ---
H&P: HPI History of Present Illness Date/Time: 08/17/22 07:48 Chief Complaint: Pelvic pain enlarged uterus Narrative: Is a 56-year-old female 3 para 3 pedis post tubal ligation for hysterectomy secondary to prolapse uterine fibroids benign findings under endometrium. Risks and benefits reviewed including but not exclusive of , aspiration pneumonia, bleeding, transfusion, perforation injury to bowel, bladder, ureters, or other internal organs with need for open laparotomy. She received the [employer] handout entitled hysterectomy. She had the [place] handout. She had all questions answered and asked to proceed PMFSH Past Medical History Medical History Fibromyalgia GERD (gastroesophageal reflux disease) HTN (hypertension) (Unknown) Obesity Surgical History Surgical History H/O colonoscopy History of section History of laparoscopic cholecystectomy 12/31/2021 - laparoscopic cholecystectomy Family History Family History Father Stomach cancer Mother Diabetes mellitus COPD (chronic obstructive pulmonary disease) Other Breast cancer Family history of cardiovascular disease Social History Social History Smoking status: Never smoker Alcohol intake: current Drinks per week: 2 Alcohol use details: occasional wine on weekend Substance use: never Substance use type: does not use 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 Spiritual care concerns: No Meds Home Medications and Allergies Home Medications Medication Instructions Recorded Confirmed Type aspirin 81 mg capsule 81 mg PO DAILY 06/30/21 08/09/22 History estradiol-norethindrone acet 0.5 1 tablet PO DAILY 06/30/21 08/09/22 History mg-0.1 mg tablet nortriptyline 25 mg capsule 25 mg PO HS 06/30/21 08/09/22 History verapamil 120 mg tablet,extended 120 mg PO HS 06/30/21 08/09/22 History release famotidine 40 mg tablet 40 mg PO DAILY 07/06/22 08/09/22 History rabeprazole 20 mg tablet,delayed 20 mg PO DAILY #90 tabs 07/06/22 08/09/22 Rx release Allergies Allergy/AdvReac Type Severity Reaction Status Date / Time No Known Allergies Allergy Verified 08/09/22 12:38 Exam Const: General: cooperative, healthy appearing and comfortable Nutritional Appearance: average body habitus and overweight Orientation/consciousness: oriented to person, oriented to place and oriented to time HENMT: Head: normal to inspection Resp: Effort & Inspection: normal respiratory effort Cardio: Rate: regular rate Rhythm: regular rhythm Heart sounds: S1 normal heart sound present and S2 normal heart sound present GI: Inspection: normal to inspection : Speculum Exam - Vagina: normal appearance of the vagina Speculum Exam - Cervix: normal appearance of the cervix Bimanual exam- vagina & uterus: enlarged (Second-degree prolapse present) Bimanual Exam- Adnexa, other: normal adnexae Assessment and Plan Assessment and plan (1) Uterine fibroid: Code(s): D25.9 - Leiomyoma of uterus, unspecified Status: Acute (2) Postmenopausal bleeding: Code(s): N95.0 - Postmenopausal bleeding Status: Acute (3) Uterine prolapse: Code(s): N81.4 - Uterovaginal prolapse, unspecified Status: Acute Plan Robotic total vaginal hysterectomy with bilateral salpingo-oophorectomy
[2022-08-20] VITALS (15 sets, daily range): BP systolic 99–127; BP diastolic 61–77; PULSE 52–84; RESP 10–18; TEMP 36.1–36.9; O2SAT 92–100; BMI 31.6
--- NOTE | 2022-08-20 06:08 | WPDHPUPDATE1 ---
History and Physical Update Update Date/Time: 08/20/22 06:08 History and Physical has been reviewed, including an updated exam of the patient. There are NO changes in the patient's condition. Risks, benefits, and alternatives have been discussed and questions answered. Patient agrees to proceed with procedure.
[2022-08-20] MEDS: LACTATED RINGERS 1,000 ML 30 ML IV CONT ×2 (06:50→08:38)
[2022-08-20] MEDS: ACETAMINOPHEN 500 MG TABLET 1000 MG PO (07:02)
[2022-08-20] MEDS: KETOROLAC 15 MG/ML VIAL (*BKC) IV PUSH (07:02)
--- NOTE | 2022-08-20 07:07 | WPDANESEPPF ---
Anes - Initial Pre Proc Eval Procedure: Operation Date: 08/20/22 07:30 Proposed Procedures p Robotic Assisted Total Vaginal Hysterectomy, Bilateral Salpingo Oophorectomy - Delroy Oneal MD Date/Time: 08/20/22 07:07 Surgeon: Delroy Oneal MD Pre Op Diagnosis: enlarged uterus, pain,fibroid, post chance bleeding Patient Data Age: 56 Gender: F Height: 1.6 m Weight: 80.95 kg Last Vital Signs Temp 36.3 C L 08/20/22 06:25 Pulse 84 08/20/22 06:25 Resp 16 08/20/22 06:25 BP 127/77 08/20/22 06:25 Pulse Ox 98 08/20/22 06:25 O2 Del Method Room Air 08/20/22 06:25 Allergies Allergy/AdvReac Type Severity Reaction Status Date / Time No Known Allergies Allergy Verified 08/20/22 06:29 Home Medications Medication Instructions Recorded Confirmed Type aspirin 81 mg capsule 81 mg PO DAILY 06/30/21 08/09/22 History estradiol-norethindrone acet 0.5 1 tablet PO DAILY 06/30/21 08/09/22 History mg-0.1 mg tablet nortriptyline 25 mg capsule 25 mg PO HS 06/30/21 08/09/22 History verapamil 120 mg tablet,extended 120 mg PO HS 06/30/21 08/09/22 History release famotidine 40 mg tablet 40 mg PO DAILY 07/06/22 08/09/22 History rabeprazole 20 mg tablet,delayed 20 mg PO DAILY #90 tabs 07/06/22 08/09/22 Rx release hydrocodone 5 mg-acetaminophen 325 1 tablet PO Q4H PRN pain #30 tabs 08/20/22 Rx mg tablet Patient hx anesthesia problems: none Family hx anesthesia problems: none Results Review: All pre-operative results and documents have been reviewed as part of the pre-operative evaluation. [facility] Past Medical History Medical History Fibromyalgia GERD (gastroesophageal reflux disease) HTN (hypertension) (Unknown) Obesity Surgical History Surgical History H/O colonoscopy History of section History of laparoscopic cholecystectomy 12/31/2021 - laparoscopic cholecystectomy Family History Family History Father Stomach cancer Mother Diabetes mellitus COPD (chronic obstructive pulmonary disease) Other Breast cancer Family history of cardiovascular disease Social History Social History Smoking status: Never smoker Alcohol intake: current Drinks per week: 2 Alcohol use details: occasional wine on weekend Substance use: never Substance use type: does not use Living arrangements: with family Additional occupation/education comments: general teller Spiritual care concerns: No Anes - Eval Final PreProcedure Day of Procedure 08/20/22 07:07 Patient weight: obese Heart: regular rate and rhythm Lungs: clear to auscultation Airway: Mallampati scale class II Neurological: alert and oriented Last oral intake: >/= 8 hours ASA classification: III Emergent: no Anesthetic plan: proceed Anesthesia type and monitoring: general ETT and standard monitoring Results Review: All pre-operative results and documents have been reviewed as part of the pre-operative evaluation. Informed Consent: The patient's anesthetic plan and its attendant risks and benefits were discussed with the patient/family/POA. Questions were solicited and answers provided to the satisfaction of the patient/family/POA.
[2022-08-20] MEDS: ceFAZolin 2 GM/D5W 50 ML 2 GM/50 ML BAG IVPB (07:25)
--- NOTE | 2022-08-20 08:30 | P.OP_ITS ---
Procedure Note - Detailed Date of Procedure 08/20/22 Pre-op Diagnosis enlarged uterus, pain,fibroid, post chance bleeding Post-op Diagnosis Same Procedure Performed Robotic total vaginal hysterectomy and bilateral salpingo-oophorectomy Surgeon Delroy Oneal MD Anesthesia General Indications so 56-year-old female with fibroid uterus postmenopausal bleeding findings Findings large fibroid uterus tubes status post tubal ligation Description of Procedure patient was prepped draped in the normal sterile fashion placed in dorsal lithotomy position. Under excellent general trach anesthesia weighted speculum placed in posterior fornix vagina. Anterior lip of the cervix grasped with single-tooth tenaculum uterus sounded to 10cm pre serial dilatation fragmented dilators performed followed by passage of the 8. MARCIO and the 3. Cold. Next the 16 Serbian catheter was placed in the bladder and drained of clear urine. The remaining instruments removed and the gloves were changed. A supraumbilical incision made the Veress needle passed in the abdomen. Abdomen filled with CO2 gas [id number]. The 8mm trocar advanced in the abdomen. Downside visualized no injury seen. Gas reattached. Patient placed in Trendelenburg and left and right lateral quadrant incisions made. 8Mm trocars were advanced under direct visualization assuring no injury. At a an 8mm trocar was advanced in the right upper quadrant under direct visualization again assuring no injury. The robot was docked. Attention was turned to the clinical mental health counselor. The left round ligament was grasped, burned, cut. Anteriorly a bladder flap was formed by sharply dissecting the peritoneum and sharply dissecting the bladder away from the uterus and cervix caudally to the oppositeRound ligament was clamped, burned, cut. Next the left infundibulopelvic structure was skeletonized to remove the left ovary and tube. This was clamped, burned, cut and brought to level of the previously cut round ligament. Removing the right ovary and tube the infundibulum with the elbow thick structure on the right was skeletonized clamping burning cutting and bringing this to the previously cut round ligament. The cardinal broad ligaments on the left were then serially skeletonized clamping burning cutting and hugging the cervix and uterus until the large uterine tortuous vessels could be seen on the left. These were individually clamped, burned, cut. In like fashion the cardinal broad ligaments on the right were serially skeletonized clamping burning cutting until the uterine vessels could be seen on the right. These were individually clamped, burned, cut. Excellent blanching of the uterus was noted at that point. A colpotomy incision was made in the cervix uterus ovaries and tubes removed through the vagina. The vagina was then closed with continuous running 0V lock from lateral edge to lateral edge back to the midline. Irrigation undertaken until clear and blood loss estimated at [id number]. The robot was undocked. The gas removed from the abdomen. The incisions closed with 4-0 Monocryl and glue after trocars gas removed from the abdomen. The patient was awakened after removing the instruments from vagina. All sponge, needle, instrument counts were correct. There were no immediate complications Estimated Blood Loss 25 Drains No Packing No Pathology Yes Complications No immediate complications Condition Stable Disposition PACU
[2022-08-20] MEDS: fentaNYL CITRATE INJ (*CRX) 100 MCG/2 ML VIAL 25 MCG IV PUSH ×5 (09:42→10:26)
[2022-08-20] MEDS: KETOROLAC 30 MG/ML VIAL (*BKC) IV PUSH (10:55)
[2022-08-20] MEDS: DEXTROSE 5%/LACTATED RINGERS 1,000 ML 125 ML IV CONT (10:55)
[2022-08-20] MEDS: ENOXAPARIN 40 MG/0.4 ML SYRINGE SUB-Q (11:41)
[2022-08-20] MEDS: HYDROcodone/acetaminophen (*CRX) 5-325 MG TABLET 1 TAB PO ×2 (13:44→19:15)
[2022-08-20] MEDS: DOCUSATE SODIUM 100 MG CAPSULE PO (19:15)
[2022-08-20] MEDS: SIMETHICONE 80 MG TAB.CHEW PO (19:16)
[2022-08-21 05:00] VITALS: BP 123/73; PULSE 70; RESP 18; TEMP 36.4; O2SAT 95
[2022-08-21 05:27] LABS: Basophils Percent Auto 0.3 % (0.2-1.2); Eosinophils Percent Auto 0.1 % (0-4.4); Hematocrit 41.7 % (37.0-47.0); Hemoglobin 14.2 g/dL (12.0-15.0); Immature Granulocyte Percent A 0.7 % (0-0.5); Lymphocytes Absolute Auto 0.93 K/mm3 (0.9-3.2); Lymphocytes Percent Auto 6.2 % (18.3-44.2); Mean Corpuscular HGB Conc 34.1 g/dl (32-36); Mean Corpuscular Hemoglobin 31.8 pg (26-34); Mean Corpuscular Volume 93.5 fl (80-100); Mean Platelet Volume 11.1 fl (7.4-10.4); Monocytes Absolute Auto 0.5 K/mm3 (0.1-0.6); Monocytes Percent Auto 3.5 % (2.6-8.5); Neutrophils Absolute Auto 13.3 K/mm3 (1.3-6.7); Neutrophils Percent Auto 89.2 % (45.5-73.1); Platelet Count Result 207 k/mm3 (150-375); Red Blood Count 4.46 M/mm3 (4.2-5.4); Red Cell Distribution Width 11.8 % (11.5-14.5); White Blood Count 14.9 K/mm3 (4.5-10.0)
[2022-08-21] MEDS: IBUPROFEN 600 MG TABLET PO (08:07)
[2022-08-21] MEDS: DOCUSATE SODIUM 100 MG CAPSULE PO (08:07)
[2022-08-21 08:10] VITALS: BP 118/76; PULSE 71; RESP 18; TEMP 36.5; O2SAT 99
--- NOTE | 2022-08-21 08:41 | PM.DS ---
DS: Admitting Diagnosis Discharge Date 08/21/2022 Admitting Diagnosis prolapse/fibroid/bleeding DS: Discharge Diagnosis Discharge Diagnosis (1) Uterine prolapse: Code(s): N81.4 - Uterovaginal prolapse, unspecified Status: Acute (2) Postmenopausal bleeding: Code(s): N95.0 - Postmenopausal bleeding Status: Acute (3) Uterine fibroid: Code(s): D25.9 - Leiomyoma of uterus, unspecified Status: Acute DS: Summary Hospital Course Reason for hospitalization: patient was admitted for robotic total vaginal hysterectomy and bilateral salpingo-oophorectomy. The procedure was unremarkable on 1621. Her hospital course unremarkable. She remained afebrile. She was up, voiding without difficulty, ambulating, and generally without complaints. Hospital Course: Patient underwent hysterectomy and bilateral salpingo-oophorectomy via the robot. Her course was unremarkable Time Spent with Patient Time attestation: Total time spent providing and/or coordinating discharge services: Exam Const: General: cooperative, healthy appearing, comfortable and average body habitus Orientation/consciousness: oriented to person, oriented to place and oriented to time Resp: Effort & Inspection: normal respiratory effort Cardio: Rate: regular rate Rhythm: regular rhythm Heart sounds: S1 normal heart sound present and S2 normal heart sound present GI: Inspection: normal to inspection and incision ( wound clean dry intact) DS: Data Data Completed and Pending Pending studies at discharge: Pending at discharge 08/20/22 08:05 Surgical [PTH] Routine Labs on day of discharge: Labs from last 24 hours 08/21/22 05:10 WBC 14.9 H RBC 4.46 Hgb 14.2 Hct 41.7 MCV 93.5 MCH 31.8 MCHC 34.1 RDW 11.8 Plt Count 207 MPV 11.1 H Immature Gran % (Auto) 0.7 H Neut % (Auto) 89.2 H Lymph % (Auto) 6.2 L [place] % (Auto) 3.5 Eos % (Auto) 0.1 Baso % (Auto) 0.3 Lymph # (Auto) 0.93 [place] # (Auto) 0.5 Eos # (Auto) 0.0 Baso # (Auto) 0.0 Abs Immat Gran (auto) 0.10 H Absolute Neuts (auto) 13.3 H Absolute Nucleated RBC 0.0 Nucleated RBC % 0.0 Discharge Plan Discharge Patient Disposition: Home, Self-Care Stand Alone Forms: General Discharge Instructions Follow-up/Referrals: Delroy Chirinos MD [Physician] - Discharge Medications: New hydrocodone-acetaminophen 5-325 mg tablet 1 tablet PO Q4H PRN (Reason: pain) Qty: 30 0RF Continued famotidine 40 mg tablet 40 mg PO DAILY rabeprazole 20 mg tablet,delayed release (DR/EC) 20 mg PO DAILY Qty: 90 1RF verapamil 120 mg tablet extended release 120 mg PO HS nortriptyline 25 mg capsule 25 mg PO HS estradiol-norethindrone acet 0.5-0.1 mg tablet 1 tablet PO DAILY aspirin 81 mg Capsule 81 mg PO DAILY
== END 2022-08-21 10:27 | disposition home or self-care (01) ==
LOC: ANHSURGERY 06:19 → ANHOB2 10:48
PROVIDERS: PCP Internal Medicine; Visit Provider Obstetrics & Gynecology
PROC: (CPT 58552; principal; 2022-08-20 07:30)
DX: N95.0 Postmenopausal bleeding (principal); D25.1 Intramural leiomyoma of uterus; D25.2 Subserosal leiomyoma of uterus; N81.4 Uterovaginal prolapse, unspecified; I10 Essential (primary) hypertension; K21.9 Gastro-esophageal reflux disease without esophagitis; M79.7 Fibromyalgia; E66.9 Obesity, unspecified; Z68.31 Body mass index [BMI] 31.0-31.9, adult; Z79.82 Long term (current) use of aspirin
CPT/HCPCS: 58552; S2900; 36415; 85025; 88307; 99199; A9270; J0690; J1100; J1650; J1885; J2250; J2405; J2704; J2710; J3010; J7030; J7120; J7121

== ENCOUNTER → 2022-11-18 07:09 | Outpatient (CLI) | payer BC, SELFPAY ==
--- NOTE | ~2022-11-18 | XR_ITS ---
EXAMINATION: XR hip RT min 2V DATE: 11/18/2022 07:27 INDICATION: Right hip pain. TECHNIQUE: 2 views of right hip were obtained. COMPARISON: None. FINDINGS: Bone alignment is normal. No fracture. There is mild right hip osteoarthritis. IMPRESSION: 1. Mild right hip osteoarthritis. Reviewed, dictated and finalized at location A.
--- NOTE | ~2022-11-18 | XR_ITS ---
Lumbosacral Spine: AP and lateral views Clinical History: Pain Findings: The normal lordotic curve is maintained. Minimal anterior wedging deformity of L2 and L3 li myke present.. There is moderate to advanced degenerative disc narrowing at L5-S1. Remaining disc spa jessica are preserved.. The sacroiliac joints are normally outlined. Impression: Probable minimal anterior wedging deformities of L2 and L3. Degenerative disc narrowing at L5-S1. Reviewed, dictated and finalized at location . Impression: Probable minimal anterior wedging deformities of L2 and L3. Degenerative disc narrowing at L5-S1.
== END ==
PROVIDERS: PCP Internal Medicine; Visit Provider Internal Medicine
DX: M16.11 Unilateral primary osteoarthritis, right hip (principal); M54.50 Low back pain, unspecified
CPT/HCPCS: 72100; 73502